=== PATIENT | male | born 1940 | race Caucasian/White ===

== ENCOUNTER 2017-01-24 11:00 | Inpatient (IN) | payer MEDICARE, OTHER ==
[~2017-01-24] VITALS: Ht 172.7 cm; Wt 91.8 kg
--- NOTE | ~2017-01-24 | DS ---
PATIENT'S NAME: LEONEL YANG [facility] AGE: 76 Y [address] ROOM: [address] [place], [place] [address] LOCATION: GPCU ADMIT DATE: 01/25/2017 Discharge Summary DISCHARGE DATE: 01/28/2017 FAMILY PHYSICIAN: Fartun Landry MD ATTENDING PHYSICIAN: Davis Nielsen FINAL DIAGNOSIS: Right internal carotid artery high-grade stenosis. SECONDARY DIAGNOSES: 1. Essential hypertension. 2. Urinary retention. 3. Acute kidney injury. 4. Chronic constipation. 5. Hyperlipidemia. PROCEDURES: Right carotid endarterectomy with bovine patch by Dr. Nielsen on 01/25/2017. CONSULTATIONS: Hospitalist for medication management. HOSPITAL COURSE: This is a 76-year-old male, admitted to [facility] on 01/25/2017 after right carotid endarterectomy with bovine patch. The patient was found to have high-grade ICA stenosis on a carotid screening. Prior to surgery, he was asymptomatic of TIAs, however, had a remote history of stroke many years ago. The patient is a former smoker and nondiabetic. He does have a family history of carotid disease with stroke. See history and physical for full patient details. The patient tolerated the procedure well and after recovery, was admitted to the progressive care unit for monitoring of neurological status, telemetry, vitals, labs, surgical site, pain management, medication administration, and nursing assistance. His diet was advanced as tolerated. He was continued on IV Ancef for 24 hours. Complaints on postop day zero included nausea and emesis as well as urinary retention requiring Sherman placement. We did attempt to remove the Sherman on morning of postop day #1 after B and O suppository and Ativan. The patient continued to have problems with urinary retention, and Flomax was started daily. The patient received a Dulcolax suppository for constipation. At the end of postop day #1, bladder scan revealed 992 mL of urine. Therefore, a Sherman was re-inserted. From a surgical standpoint on postop day #1, his neck incision was found in a stable condition without hematoma. No neurological deficits. No nerve injury. On postop day #2, the patient reported improvement in nausea as well as a good bowel movement. A renal ultrasound was ordered for acute kidney injury, and the patient underwent voiding trial. On postop day #3, the patient remained neurologically stable. He was voiding without difficulty. It was recommended that he follow up with his urologist as an outpatient. Overall, the patient PATIENT'S NAME: LEONEL YANG [facility] AGE: 76 Y [address] ROOM: [place] [address] LOCATION: GPCU ADMIT DATE: 01/25/2017 Discharge Summary DISCHARGE DATE: 01/28/2017 FAMILY PHYSICIAN: Fartun Landry MD ATTENDING PHYSICIAN: Davis Nielsen was found in stable condition to be discharged home. DIAGNOSTICS: Renal ultrasound. Impression: No ultrasound findings of renal collective system obstruction. Multiple bilateral renal cysts. Large complex cyst about 7 cm in diameter at the upper pole of the left kidney. Hemorrhagic cyst is a differential consideration. Prostate enlargement with indentation on the base of the bladder. Wall thickening at the anterior wall of the bladder. LABORATORY DATA: Creatinine trending 2.4, 2.2, 2.0. White blood cell count trending 6.8, 5.6, 4.4. Hemoglobin trending 7.9, 8.3, 8.1. DISCHARGE ORDERS: The patient is to be discharged to home on a regular diet. He is to avoid heavy lifting or driving for 2 weeks. He is to follow up with Gayle Carver APRN in [place] on 02/07/2017 at [facility]. He is to follow up with his primary care provider in [place] in 1 week following discharge. He is to have a renal panel drawn at his primary care provider's office on 01/29/2017. He is also to set up an appointment with urologist to follow up on urinary retention issues and complex renal cysts noted on ultrasound. He is to report any signs or symptoms of infection including redness, swelling, fevers, chills, or drainage. He is to report any signs or symptoms of TIA or stroke. DISCHARGE MEDICATIONS: 1. Atorvastatin 20 mg p.o. daily. 2. Thyroid pork tablets 65 mg p.o. daily. 3. Hytrin 5 mg p.o. daily at bedtime. 4. Allopurinol 300 mg p.o. daily at bedtime. 5. Aspirin 81 mg p.o. daily at bedtime. 6. Casodex 50 mg p.o. daily at bedtime. 7. Vitamin D 1000 units p.o. daily. 8. Coral calcium 1000 mg capsule p.o. daily. 9. Homocystine Formula tablet 1 tablet p.o. twice daily. 10. Magnesium tablets p.o. every night at bedtime. 11. Vitamin B complex 1 tablet p.o. twice daily. 12. Hygroton 25 mg p.o. daily as needed, blood pressure. 13. Ativan 1 mg p.o. 3 times daily as needed, anxiety. 14. Fowler 5/325 one to two tabs as needed every 4 hours, pain. 15. Flomax extended release 0.4 mg p.o. daily. DISPOSITION: The patient is discharged home in a stable condition. He is to follow discharge orders as prescribed. Education about discharge including incisional care, medications, prescriptions, diet, activity, and followup appointments given to the patient. The patient verbalizes understanding of the plan and has no further questions or concerns. He is to follow the PATIENT'S NAME: LEONEL YANG [facility] AGE: 76 Y [address] ROOM: [place] [address] [facility] DATE: 01/25/2017 Discharge Summary DISCHARGE DATE: 01/28/2017 FAMILY PHYSICIAN: Fartun Landry MD ATTENDING PHYSICIAN: Davis Nielsen discharge orders as prescribed. GAYLE CANDI CARVER FOR DAVIS NIELSEN MD TO/modl /[id number] d: 02/07/17 0341 t: 02/09/17 1005, DISCHARGE SUMMARY
--- NOTE | ~2017-01-24 | OR ---
[facility] 76 Y [address] ROOM: [address] [address] [facility] AD[facility] DATE: 01/25/2017 OR/Procedure Report DISCHARGE DATE: FAMILY PHYSICIAN: Fartun Landry MD ATTENDING PHYSICIAN: DAVIS NIELSEN SURGEON: Davis Nielsen MD PIPEFITTER: DATE OF PROCEDURE: 01/25/2017 PREOPERATIVE DIAGNOSIS: High-grade right internal carotid artery stenosis. POSTOPERATIVE DIAGNOSIS: High-grade right internal carotid artery stenosis. PROCEDURES PERFORMED: Right carotid endarterectomy with bovine pericardial patch. MANAGER INTERNAL: CROW Tellez. ANESTHESIA: General. ESTIMATED BLOOD LOSS: 100 mL. OPERATIVE FINDINGS: 1. Neurologically intact at the end of the case. 2. High-grade right ICA stenosis. DESCRIPTION OF PROCEDURE: The patient was brought to the Operating Room, placed supine on the operating table, and placed under general anesthesia. He was prepped and draped in a sterile manner. He had placement of a right arterial line for better monitoring. Prepped and draped in a sterile manner and received preoperative antibiotics. A time-out was performed. We made a standard incision along the anterior border of the sternocleidomastoid muscle, and transected the platysma. We dissected the soft areolar tissue on the anterior border of the muscle. We then dissected out the internal jugular along its length. We dissected out the facial vein, which was ligated and transected. We then dissected out the common, the external, the internal, as well as the superior thyroid. We gave 5000 units of heparin. We clamped on all three major vessels, and then placed a clip on the superior thyroid. We removed the clamp on the internal and performed a back pressure, which showed a pressure of less than 40 indicating that the patient required a shunt. We then placed a 5 x 3 shunt after making an arteriotomy from the common to the internal. We then confirmed flow with the use of Doppler. We then removed the plaque in its entirety, and then the orifice of the external, which was probed further to remove any further debris. Once we were satisfied, we removed the plaque in its entirety. We made a standard 6-0 [place] bovine PATIENT'S NAME: [facility] AGE: 76 Y [address] ROOM: [address] [address] [facility] AD[facility] DATE: 01/25/2017 OR/Procedure Report DISCHARGE DATE: FAMILY PHYSICIAN: Fartun Landry MD ATTENDING PHYSICIAN: DAVIS NIELSEN pericardial patch. Before completing the patch, we clamped to remove the shunt. We allowed for backbleeding through the internal as well as flushing through the common. We then irrigated with heparinized saline. We then completed the anastomosis and removed the clamp from the superior thyroid, the external, and the common. We waited 10 heartbeats and removed the clamp from the internal. Any bleeding edges were repaired with 6-0 Prolene. Protamine was used to reverse the heparin. Thrombin was used locally in the wound as well as Surgicel. WOUND CLOSURE: Deep layers were closed with 2-0 and 3-0 Vicryl. Skin was closed with running 4-0 Monocryl. POSTOPERATIVE CONDITION: The patient tolerated the procedure well, and was transferred to the Recovery Room after being able to move all extremities and say his name and follow commands in the Operating Room. DAVIS NIELSEN MD FKM/modl /[id number] d: 01/25/17 2305 t: 01/29/17 1029, OPERATIVE SUMMARY
--- NOTE | ~2017-01-24 | CON ---
[facility] 76 Y [address] ROOM: [place] [address] LOCATION: GPCU ADMIT DATE: 01/25/2017 Consultation DISCHARGE DATE: FAMILY PHYSICIAN: Fartun Landry MD ATTENDING PHYSICIAN: BRIDGETTE NIELSEN DATE OF CONSULTATION: 01/25/2017 REFERRING PHYSICIAN: BRAYDON FLORES MD CHIEF COMPLAINT/REASON FOR CONSULTATION: Medical management in the setting of carotid endarterectomy. HISTORY OF PRESENT ILLNESS: This 76-year-old white male with previous history of prostate cancer stage IV and hypertension was admitted to [facility] today by Dr. Nielsen for planned right carotid endarterectomy. He is asymptomatic, but does have a prior history of stroke. He was noted to have significant carotid disease and was recommended to undergo carotid endarterectomy. Presently, he is having difficulty voiding. He has not been able to void since the procedure. He denies fevers, chills, or sweats. He had some nausea earlier, but that is better now. He denies headache pain, no chest pain, no significant shortness of breath, and no abdominal pain. He does feel full in his bladder. He has not had a bowel movement in a couple of days. He denies numbness or tingling in his extremities or any associated physical or constitutional complaints. ALLERGIES: MEPERIDINE CAUSES DYSPNEA. ILLNESSES: 1. Prostate cancer stage IV. 2. Essential hypertension. 3. Hyperlipidemia. 4. Tobaccoism. CURRENT MEDICATIONS: 1. Atorvastatin 20 mg p.o. daily. 2. Casodex 50 mg p.o. daily. 3. Chlorthalidone 25 mg half to one tab p.o. daily p.r.n. high blood pressure. 4. Coral Calcium 390 mg p.o. daily. 5. Nature-Throid 65 mg p.o. daily. 6. Super B multivitamin daily. 7. Homocystine 1 tab p.o. b.i.d. [facility]GE[facility] 76 Y [address] ROOM: [place] [address] LOCATION: GPCU ADMIT DATE: 01/25/2017 Consultation DISCHARGE DATE: FAMILY PHYSICIAN: Fartun Landry MD ATTENDING PHYSICIAN: BRIDGETTE NIELSEN 8. Terazosin 5 mg p.o. daily. 9. Vitamin D3 1000 units p.o. daily. 10. Allopurinol 300 mg p.o. daily. 11. Aspirin 81 mg p.o. daily. FAMILY HISTORY: Significant for cancer in his mother. SOCIAL HISTORY: He is and lives in [place]. He is retired. He does have significant history of tobacco use, approximately 10-pack years. No significant history of alcohol use. REVIEW OF SYSTEMS: As per HPI. All other organ systems reviewed and are negative. OBJECTIVE: VITAL SIGNS: Temperature 97.4, pulse 73, respirations 12, and blood pressure 122/62. Weight is 89.9 kg. GENERAL: He is anxious, but cooperative, seated on the commode, in no acute distress. SKIN: Supple, pink, warm, and dry. No obvious rashes. Wound overlying the right neck is clean, dry, and intact. HEENT: Otherwise, normocephalic. Sclerae nonicteric. Pupils equal, round, and reactive to light and accommodation. Extraocular movements appear intact. Nasal turbinates normal in appearance. Oropharynx clear. Mucous membranes are pink and moist. NECK: Supple. No other masses or adenopathy. The dressing is clean, dry, and intact as described above. CHEST: Chest wall is symmetrical. HEART: Regular without murmurs. LUNGS: Diminished, but clear. No crackles or wheezes heard. ABDOMEN: Soft and nontender. Bowel sounds present. No mass or hepatosplenomegaly. EXTREMITIES: Display no significant clubbing, cyanosis, or edema. NEUROLOGICAL: No focal deficits. LABORATORY AND X-RAY DATA: None available. ASSESSMENT AND PLAN: 1. Urinary retention. We will get bladder scan. He has not had any previous issues with retention in the past. If he is retaining significantly, we will place a Sherman catheter for tonight. 2. Essential hypertension, appears to be adequately controlled. We will PATIENT'S NAME: LEONEL YANG [facility] AGE: 76 Y [address] ROOM: [place] [address] LOCATION: GPCU ADMIT DATE: 01/25/2017 Consultation DISCHARGE DATE: FAMILY PHYSICIAN: Fartun Landry MD ATTENDING PHYSICIAN: BRIDGETTE NIELSEN monitor the trend and make adjustments if necessary. 3. Carotid artery stenosis, status post right carotid endarterectomy, clinically stable, postoperative day #0. Pain is well controlled. Continue with supportive cares and monitor. 4. Constipation, chronic. Encourage mobilization and good bowel hygiene. 5. Osteoarthritis, generalized. Mobilize as above. Symptomatic measures, but avoid nonsteroidal anti-inflammatory drugs. 6. Hyperuricemia. Plan to continue with gout monitor. 7. Hyperlipidemia. Continue statin therapy. 8. Deep venous thrombosis prophylaxis. Lovenox daily. DANITZA J MD MICHELLE MANZO/modl /[id number] d: 01/26/17 0243 t: 01/29/17 0709, CONSULTATION REPORT
[2017-01-24] MEDS ORDERED: LIPITOR20 M1 PO (11:38)
[2017-01-24] MEDS ORDERED: NATURE-THROID65 MG PO (11:38)
[2017-01-24] MEDS ORDERED: HYTRIN UD5 MG PO (11:39)
[2017-01-24] MEDS ORDERED: ZYLOPRIM300 MG PO (11:39)
[2017-01-24] MEDS ORDERED: ASPIRIN EC81 MG PO (11:40)
[2017-01-24] MEDS ORDERED: CASODEX50 M1 PO (11:40)
[2017-01-24] MEDS ORDERED: VITAMIN D1000 UNI1 PO (11:41)
[2017-01-24] MEDS ORDERED: CORAL CALCIUM1 EACH PO (11:41)
[2017-01-24] MEDS ORDERED: HOMOCYSTEINE F1 EACH PO (11:42)
[2017-01-24] MEDS ORDERED: MAGNESIUM PO (11:43)
[2017-01-24] MEDS ORDERED: B COMPLEX1 EACH PO (11:44)
[2017-01-24] MEDS ORDERED: PROSTATE HEALT1 EACH PO (11:44)
[2017-01-24] MEDS ORDERED: HYGROTON25 MG PO (11:46)
[2017-01-24] MEDS ORDERED: ATIVAN 1 MG1 MG PO (12:56)
[2017-01-26 04:47] LABS: ALBUMIN 2.8 gm/dL (3.5-5.0); CREATININE 2.4 mg/dL (0.6-1.3); PHOSPHORUS 2.2 mg/dL (2.5-4.9)
[2017-01-26 04:48] LABS: CALCIUM 6.2 mg/dL (8.5-10.5)
[2017-01-26 05:05] LABS: HEMATOCRIT 24.6 % (37.0-53.0); MCH 31.1 pg (27.0-34.0); MCHC 32.1 gm/dL (32.0-36.5); MCV 96.9 fl (83.0-98.0); MPV 9.1 fl (9.4-12.4); PLATELET COUNT 150 K/uL (150-450); RBC 2.54 M/uL (3.50-5.50); RDW-CV 17.7 % (11.9-14.6); WBC 6.8 K/uL (4.0-11.0)
[2017-01-26 05:07] LABS: HEMOGLOBIN 7.9 g/dL (11.0-16.0)
[2017-01-26 06:42] LABS: ABSOLUTE NEUTROPHIL CT (ANC) 5.6 K/uL (1.4-9.0); BANDED NEUTROPHIL # 0.6 K/uL (0.0-0.1); BANDED NEUTROPHILS % 9 %; LYMPHOCYTE % 14 %; MONOCYTE # 0.3 K/uL (0.0-1.0); SEGMENTED NEUTROPHIL % 73 %
[2017-01-27 08:14] LABS: BASOPHIL % 0.2 %; EOSINOPHIL % 0.4 %; HEMOGLOBIN 8.3 g/dL (11.0-16.0); IMMATURE GRANULOCYTE % 0.5 %; LYMPHOCYTE # 0.7 K/uL (0.8-4.0); LYMPHOCYTE % 13.1 %; MCH 31.1 pg (27.0-34.0); MCHC 31.9 gm/dL (32.0-36.5); MCV 97.4 fl (83.0-98.0); MONOCYTE # 0.4 K/uL (0.0-1.0); MONOCYTE % 7.2 %; MPV 8.7 fl (9.4-12.4); NEUTROPHIL # (ANC) 4.4 K/uL (1.4-9.0); NEUTROPHIL % 78.6 %; NRBC % 0 /100WBC (0-0.00); PLATELET COUNT 126 K/uL (150-450); RBC 2.67 M/uL (3.50-5.50); RDW-CV 17.8 % (11.9-14.6); WBC 5.6 K/uL (4.0-11.0)
[2017-01-27 08:27] LABS: ALBUMIN 3.2 gm/dL (3.5-5.0); ANION GAP 13.3 (10.0-19.0); CREATININE 2.2 mg/dL (0.6-1.3); PHOSPHORUS 2.3 mg/dL (2.5-4.9); POTASSIUM 4.3 mMol/L (3.7-5.1)
[2017-01-27 08:28] LABS: CALCIUM 6.3 mg/dL (8.5-10.5); MAGNESIUM 3.6 mg/dL (1.8-2.6)
[2017-01-28 06:51] LABS: BASOPHIL % 0.2 %; EOSINOPHIL % 0.5 %; HEMATOCRIT 25.1 % (37.0-53.0); HEMOGLOBIN 8.1 g/dL (11.0-16.0); IMMATURE GRANULOCYTE % 0.9 %; LYMPHOCYTE # 0.7 K/uL (0.8-4.0); LYMPHOCYTE % 14.9 %; MCH 31.2 pg (27.0-34.0); MCHC 32.3 gm/dL (32.0-36.5); MCV 96.5 fl (83.0-98.0); MONOCYTE # 0.5 K/uL (0.0-1.0); MONOCYTE % 10.6 %; MPV 8.6 fl (9.4-12.4); NEUTROPHIL # (ANC) 3.2 K/uL (1.4-9.0); NEUTROPHIL % 72.9 %; NRBC % 0 /100WBC (0-0.00); PLATELET COUNT 109 K/uL (150-450); RDW-CV 17.8 % (11.9-14.6); WBC 4.4 K/uL (4.0-11.0)
[2017-01-28 07:10] LABS: ANION GAP 12.4 (10.0-19.0); CALCIUM 6.6 mg/dL (8.5-10.5); MAGNESIUM 3.3 mg/dL (1.8-2.6); PHOSPHORUS 1.9 mg/dL (2.5-4.9); POTASSIUM 4.4 mMol/L (3.7-5.1)
[2017-01-28] MEDS ORDERED: NORCO 5-325 TA1 EACH PO (11:49)
[2017-01-28] MEDS ORDERED: FLOMAX0.4 MG PO (11:50)
== END 2017-01-28 12:42 | disposition disaster alternative care site (69) | DRG 983 ==
LOC: GPCU 01-25 08:21
PROVIDERS: Family Medicine; Internal Medicine; ADMIT Surgery Vascular Surgery
PROC: 02C Heart and Great Vessels, Extirpation (ICD-10-PCS; principal; 2017-01-25)
DX: I65.21 Occlusion and stenosis of right carotid artery (principal); I10 Essential (primary) hypertension; Z87.891 Personal history of nicotine dependence; K59.09 Other constipation; E79.0 Hyperuricemia without signs of inflammatory arthritis and tophaceous disease; E78.5 Hyperlipidemia, unspecified; Z86.73 Personal history of transient ischemic attack (TIA), and cerebral infarction without residual deficits; R33.9 Retention of urine, unspecified
CPT/HCPCS: J0690; J1100; J1644; J1650; J2001; J2270; J2405; J2550; J2720; J3010; J3480; J7030; J7050